=== PATIENT | male | born 1990 | race Caucasian/White ===

== ENCOUNTER 2016-08-13 18:48 | Emergency (ER) | payer OTHER ==
[~2016-08-13] VITALS: Ht 167.6 cm; Wt 75.0 kg
[2016-08-13 18:54] VITALS: Ht 167.6 cm; Wt 75.0 kg
[2016-08-13] MEDS ORDERED: SOD CHLORIDE 0.9% 1,000 ML IV ONE (23:30)
[2016-08-14] LABS: BASOPHILS % 0.4 % (0.0-2.0); EOSINOPHILS # 0.1 10^3/ul (0.0-0.5); EOSINOPHILS % 0.9 % (0.0-7.0); HEMATOCRIT 52.2 % (42.0-52.0); HEMOGLOBIN 17.7 g/dl (14.0-18.0); LYMPHOCYTES # 1.4 10^3/ul (0.8-2.9); LYMPHOCYTES % 15.9 % (15.0-51.0); MEAN CORPUSCULAR HEMOGLOBIN 30.6 pg (29.0-33.0); MEAN CORPUSCULAR HGB CONC 33.9 g/dl (32.0-37.0); MEAN CORPUSCULAR VOLUME 90.3 fl (82.0-101.0); MEAN PLATELET VOLUME 7.6 fl (7.4-10.4); MONOCYTE # 0.5 10^3/ul (0.3-0.9); MONOCYTES % 6.3 % (0.0-11.0); NEUTROPHIL # 6.6 10^3/ul (1.6-7.5); NEUTROPHILS % 76.5 % (39.0-77.0); PLATELET COUNT 173 10^3/UL (140-440); RED BLOOD COUNT 5.78 10^6/ul (4.70-6.10); RED CELL DISTRIBUTION WIDTH 13.7 % (11.5-14.5); UNCORRECTED WBC 8.6 10^3/ul (4.8-10.8); WHITE BLOOD COUNT 8.6 10^3/ul (4.8-10.8)
[2016-08-14 00:02] LABS: ALBUMIN 4.6 g/dl (3.3-4.9); CHLORIDE 100 mmol/L (97-110); POTASSIUM 4.5 mmol/L (3.5-5.1); SODIUM 148 mmol/L (135-144)
[2016-08-14 00:04] LABS: BILIRUBIN,INDIRECT 2.4 mg/dl (0-1.1); BILIRUBIN,TOTAL 2.4 mg/dl (0.2-1.3); CREATININE 0.59 mg/dl (0.61-1.24)
[2016-08-14 00:05] LABS: ALANINE AMINOTRANSFERASE 29 IU/L (13-69); ALBUMIN/GLOBULIN RATIO 1.39; ALKALINE PHOSPHATASE 76 IU/L (42-121); ANION GAP 23 (8-16); ASPARTATE AMINO TRANSFERASE 46 IU/L (15-46); BLOOD UREA NITROGEN 7 mg/dl (7-20); CARBON DIOXIDE 30 mmol/L (21-31); GLUCOSE 103 mg/dl (70-220); TOTAL PROTEIN 7.9 g/dl (6.1-8.1)
[2016-08-14 00:06] LABS: CALCIUM 8.7 mg/dl (8.4-10.2)
[2016-08-14 00:15] LABS: CONDITION 1
[2016-08-14 00:43] LABS: ACETAMINOPHEN < 10.0 ug/ml (10.0-30.0); SALICYLATE < 1.0 mg/dl (5.0-30.0)
[2016-08-14 01:11] LABS: ADD UMIC NO; URINE BILIRUBIN (Dip) NEGATIVE (NEGATIVE); URINE BLOOD (Dip) NEGATIVE (NEGATIVE); URINE COLOR LT. YELLOW (YELLOW); URINE GLUCOSE (Dip) NEGATIVE (NEGATIVE); URINE KETONES (Dip) NEGATIVE (NEGATIVE); URINE LEUKOCYTE ESTERASE (Dip) NEGATIVE (NEGATIVE); URINE NITRITE (Dip) NEGATIVE (NEGATIVE); URINE TOTAL PROTEIN (Dip) NEGATIVE (NEGATIVE); URINE UROBILINOGEN (Dip) 0.2 E.U./dL (0.1-1.0)
[2016-08-14 01:27] LABS: CANNABINOIDS Positive (NEGATIVE)
[2016-08-14 01:34] LABS: BARBITURATES Negative (NEGATIVE); BENZODIAZEPINES Negative (NEGATIVE); COCAINE Negative (NEGATIVE); OPIATES Negative (NEGATIVE)
--- NOTE | 2016-08-14 05:52 | ERA ---
ER Documentation Chief Complaint Date/Time DATE: 08/14/16 TIME: 05:48 Chief Complaint alcoholic w/drawals-had been drinking cocntinoud since 08/02/16 HPI This 25-year-old male is brought in by his father for drinking for 6 days which she believes is related to his bipolar depression phase. Patient states that he is usually on Librium but has not taken it for some time. Patient admits to drinking alcohol but history taking difficult from because he appears quite intoxicated. He denies that he is any pain currently. ROS All systems reviewed and are negative except as per history of present illness. Medications Home Meds No Active Prescriptions or Reported Meds Allergies Allergies: Coded Allergies: No Known Allergy (Unverified , 01/03/15) PMhx/Soc Medical and Surgical Hx: pt denies Surgical Hx History of Surgery: No Anesthesia Reaction: No Hx Neurological Disorder: No Hx Respiratory Disorders: No Hx Cardiac Disorders: No Hx Psychiatric Problems: Yes (bipolar) Hx Miscellaneous Medical Probl: No Hx Alcohol Use: Yes (EVERYDAY) Hx Substance Use: No Hx Tobacco Use: Yes Smoking Status: Current every day smoker Physical Exam Vitals Vital Signs Date Time Temp Pulse Resp B/P Pulse Ox O2 Delivery O2 Flow Rate FiO2 08/13/16 22:31 97.8 79 20 128/80 97 Room Air 08/13/16 18:54 96.8 110 20 131/81 96 Physical Exam Const: [] No distress Head: Atraumatic Eyes: Normal Conjunctiva ENT: Normal External Ears, Nose and Mouth. Neck: Full range of motion..~ No meningismus. Resp: Clear to auscultation bilaterally Cardio: Regular rate and rhythm, no murmurs Abd: Soft, non tender, non distended. Normal bowel sounds Skin: No petechiae or rashes Back: No midline or flank tenderness Ext: No cyanosis, or edema Neur: Awake and alert and oriented 3, patient moves all 4 extremities but is too intoxicated to perform a frontal neurological exam Psych: And able to assess as the patient is very abdomen. Result Diagram: 08/13/16 1468 08/13/16 5461 Results 24 hrs Laboratory Tests Test 08/13/16 00:50 08/13/16 23:15 Urine Amphetamines Screen Negative Urine Barbiturates Negative Urine Benzodiazepines Screen Negative Urine Cannabinoids Positive Urine Cocaine Screen Negative Urine Opiates Screen Negative Acetaminophen Level < 10.0ug/ml Alanine Aminotransferase (ALT/SGPT) 29IU/L Albumin 4.6g/dl Albumin/Globulin Ratio 1.39 Alkaline Phosphatase 76IU/L Anion Gap 23 Aspartate Amino Transf (AST/SGOT) 46IU/L Basophils # 0.010^3/ul Basophils % 0.4% Blood Urea Nitrogen 7mg/dl Calcium Level 8.7mg/dl Carbon Dioxide Level 30mmol/L Chloride Level 100mmol/L Creatinine 0.59mg/dl Direct Bilirubin 0.00mg/dl Eosinophils # 0.110^3/ul Eosinophils % 0.9% Ethyl Alcohol Level 412.0mg/dl Globulin 3.30g/dl Glucose Level 103mg/dl Hematocrit 52.2% Hemoglobin 17.7g/dl Indirect Bilirubin 2.4mg/dl Lymphocytes # 1.410^3/ul Lymphocytes % 15.9% Mean Corpuscular Hemoglobin 30.6pg Mean Corpuscular Hemoglobin Concent 33.9g/dl Mean Corpuscular Volume 90.3fl Mean Platelet Volume 7.6fl Monocytes # 0.510^3/ul Monocytes % 6.3% Neutrophils # 6.610^3/ul Neutrophils % 76.5% Nucleated Red Blood Cells # 0.010^3/ul Nucleated Red Blood Cells % 0.0/100WBC Platelet Count 38087^3/UL Potassium Level 4.5mmol/L Red Blood Count 5.7810^6/ul Red Cell Distribution Width 13.7% Salicylates Level < 1.0mg/dl Sodium Level 148mmol/L Total Bilirubin 2.4mg/dl Total Protein 7.9g/dl Urine Bilirubin NEGATIVE Urine Clarity CLEAR Urine Color LT. YELLOW Urine Glucose NEGATIVE% Urine Hemoglobin NEGATIVE Urine Ketones NEGATIVE Urine Leukocyte Esterase NEGATIVE Urine Nitrite NEGATIVE Urine Specific [place] <=1.005 Urine Total Protein NEGATIVE Urine Urobilinogen 0.2 E.U./dL Urine pH 6.5 White Blood Count 8.610^3/ul Current Medications Medications (Trade) Dose Ordered Sig/Lorenzo Route PRN Reason Start Time Stop Time Status Last Admin Dose Admin Sodium Chloride (NS) 1,000 ml @ 1,000 mls/hr Q1H ONCE IV 08/13/16 23:30 08/14/16 00:29 DC 08/13/16 23:25 Procedures/MDM Patient with significant inability to care for himself, bipolar patient not taking meds drinking constantly. Patient would benefit from psychiatric management according both mother and father. Is watched by a sitter. His other laboratories are normal nothing prevent him from being medically cleared his is very high alcohol level. Patient still appears intoxicated after several hours of monitoring the emergency room. Anticipate that he will be medically cleared his alcohol level becomes lower knee becomes clinically sober and can be evaluated by social work and psychiatry. He was given a liter of IV fluids initially was tachycardic with tachycardia resolved before he received IV fluid. He still denies any pain. Departure Diagnosis: Primary Impression: Bipolar depression Additional Impressions: Alcohol intoxication Dehydration Condition: Stable SUSANA CASTRO DO Aug 14, 2016 05:52
[2016-08-14] MEDS ORDERED: PROP10TA6 PO (09:17)
[2016-08-14] MEDS ORDERED: OXCA150T43 PO (09:17)
[2016-08-14] MEDS ORDERED: LURA80TA PO (09:18)
[2016-08-14] MEDS ORDERED: FOLIC ACID 1 MG TAB PO ONE (09:30)
[2016-08-14] MEDS ORDERED: THIAMINE 100 MG TAB PO ONE (09:30)
[2016-08-14] MEDS ORDERED: LORAZEPAM 1 MG TAB PO ONE ×2 (09:30→16:00)
[2016-08-14] MEDS ORDERED: CHLORDIAZEPOXIDE 25 MG CAP PO ONE (09:30)
--- NOTE | 2016-08-14 09:31 | PSY ---
Date/Time of Note Date/Time of Note DATE: 08/14/16 TIME: 09:14 Psychiatric Subjective Eval Consent Pt consented to telemedicine: Yes Subjective Evaluation Patient location: emergency Chief Complaint: alcoholic w/drawals-had been drinking continous since 08/02/16 Reason for consult: Safety History of present illness Patient is a 25 year old male with history of bipolar disorder and alcohol abuse who was brought in to ED by mother due to safety concerns in setting of alcohol intoxication and medication non-compliance. Patient recentlyl completed 6 month rehab program at [facility] and was able to maintain three months sobriety and had been compliant with latuda for bipolar depression. He relapsed to alcohol two weeks ago "out of boredom". Over the past week and a half he has been trying to drink himself "to ". He also reported this to , stating he has been wanting to by alcohol overdose. He reports currently experiencing "shakes" and diaphoresis. He has been drinking over 20 drinks a day for the past couple weeks. He has two DUI's. He also showed up to work intoxicated two weeks ago and now he is worried about losing his job. He denies s/s of psychosis. He admits to periods of increased irritability, insomnia, impulsivity when off alcohol that has lasted months. He currently feels depressed, hopeless, helpless. Poor appetite. Difficulty sleeping. Low energy. He has racing thoughts. He denies HI intent or plan. Past psychiatric history No prior inpatient psychiatric hospitalizations. Denies prior suicide attempts. Was diagnosed with Bipolar depression and started on Latuda a few months ago, which helped someone with mood instability. Family History Denies family history of completed suicide, SCZ, Bipolar disorder, or addictive disorders. Medical history Problems Medical Problems: (1) Alcohol intoxication Status: Acute (2) Bipolar depression Status: Acute (3) Contusion of hip, left Status: Acute (4) Dehydration Status: Acute Allergies: Coded Allergies: No Known Allergy (Unverified , 01/03/15) Substance Abuse Substance abuse history: Yes Prior substance abuse treatmen: Yes Social History Marital status: single (has one child, 5yo living with mother) Level of education: HS DPA/Conservatorship: No Occupation/Half-Way: Worked at [employer] until a few weeks ago. Psychiatric Objective Eval Physical Examination: Physical Examination: Applicable Sleep: Insomnia Appetite: Decreased, Weight Loss Energy: Decreased Interest: Decreased Mental Status Examination: Appearance: Groomed Eye Contact: Fair Psychomotor Activity: Normal Behavior: Cooperative Speech: Clear AFFECT: Flat Mood: Depressed, Irritable Though Process: Linear Thought Content: Normal Suicidal: Yes Homicidal: No On 72 hour hold: No Orientation: x4 Cognition: Alert Insight: Intact Judgement: Impared Attention Span: Intact Laboratory Results Laboratory Tests Test 08/13/16 00:50 08/13/16 23:15 Urine Amphetamines Screen Negative Urine Barbiturates Negative Urine Benzodiazepines Screen Negative Urine Cannabinoids Positive Urine Cocaine Screen Negative Urine Opiates Screen Negative Acetaminophen Level < 10.0ug/ml Alanine Aminotransferase (ALT/SGPT) 29IU/L Albumin 4.6g/dl Albumin/Globulin Ratio 1.39 Alkaline Phosphatase 76IU/L Anion Gap 23 Aspartate Amino Transf (AST/SGOT) 46IU/L Basophils # 0.010^3/ul Basophils % 0.4% Blood Urea Nitrogen 7mg/dl Calcium Level 8.7mg/dl Carbon Dioxide Level 30mmol/L Chloride Level 100mmol/L Creatinine 0.59mg/dl Direct Bilirubin 0.00mg/dl Eosinophils # 0.110^3/ul Eosinophils % 0.9% Ethyl Alcohol Level 412.0mg/dl Globulin 3.30g/dl Glucose Level 103mg/dl Hematocrit 52.2% Hemoglobin 17.7g/dl Indirect Bilirubin 2.4mg/dl Lymphocytes # 1.410^3/ul Lymphocytes % 15.9% Mean Corpuscular Hemoglobin 30.6pg Mean Corpuscular Hemoglobin Concent 33.9g/dl Mean Corpuscular Volume 90.3fl Mean Platelet Volume 7.6fl Monocytes # 0.510^3/ul Monocytes % 6.3% Neutrophils # 6.610^3/ul Neutrophils % 76.5% Nucleated Red Blood Cells # 0.010^3/ul Nucleated Red Blood Cells % 0.0/100WBC Platelet Count 35772^3/UL Potassium Level 4.5mmol/L Red Blood Count 5.7810^6/ul Red Cell Distribution Width 13.7% Salicylates Level < 1.0mg/dl Sodium Level 148mmol/L Total Bilirubin 2.4mg/dl Total Protein 7.9g/dl Urine Bilirubin NEGATIVE Urine Clarity CLEAR Urine Color LT. YELLOW Urine Glucose NEGATIVE% Urine Hemoglobin NEGATIVE Urine Ketones NEGATIVE Urine Leukocyte Esterase NEGATIVE Urine Nitrite NEGATIVE Urine Specific [place] <=1.005 Urine Total Protein NEGATIVE Urine Urobilinogen 0.2 E.U./dL Urine pH 6.5 White Blood Count 8.610^3/ul Assessment and Plan Assessment/Diagnosis [place] I: F39 Mood disorder Unspecified [place] II: deferred [place] III: See medical record [place] IV: medication non-compliance, legal issues [place] V: 30 Recommendation/Plan Medication Management -Monitor for alcohol withdrawal Follow-up/Disposition -Voluntary inpatient psychiatric hospitalization for danger to self and alcohol detox. If patient changes his mind I recommend to place 5150 hold for involuntary hospitalization. WILLIAM SMITH MD Aug 14, 2016 09:24
[2016-08-14 17:08] VITALS: BP 120/75; PULSE 80; RESP 16; TEMP 97.4
== END 2016-08-14 17:14 | disposition short-term general hospital (02) ==
LOC: E/R 18:48
DX: F31.9 Bipolar disorder, unspecified (principal); E86.0 Dehydration; F17.210 Nicotine dependence, cigarettes, uncomplicated
CPT/HCPCS: 36415; 80053; 80303; 80320; 80329; 81003; 85025; J7030; Z7502; Z7610; G0478; G0479